=== PATIENT | male | born 1965 | race Caucasian/White ===

== ENCOUNTER 2019-03-24 17:31 | Emergency (ER) | payer BC ==
[2019-03-24 17:46] VITALS: BP 162/92
[2019-03-24] MEDS ORDERED: Rocephin 1000 MG INJ IM ONE (18:05)
[2019-03-24] MEDS ORDERED: Adacel Vial IM ONE ×2 (18:05→18:09)
[2019-03-24] MEDS ORDERED: XYLOCAINE 1% HCL 20 ML MDV IJ ONE (18:07)
[2019-03-24] MEDS ORDERED: XYLOCAINE 1% HCL 20 ML MDV ONE (18:09)
[2019-03-24] MEDS ORDERED: Rocephin 1000 MG INJ ONE (18:09)
--- NOTE | 2019-03-24 18:11 | ERPHSYRPT ---
- History of Present Illness Time Seen by Provider: 03/24/19 18:06 Source: patient Exam Limitations: no limitations Patient Subjective Stated Complaint: Pt states "I was walking down the road and the dog came out and bit me." Triage Nursing Assessment: Pt presented alert and oriented X 3, skin pwd. PT ambulates with an upright steady gait, able to speak in clear fulls sentences pt in no apparent respiratory distress. Pt has 2 puncture wounds to the back of left leg on calf, bleeding noted. Physician History: Pt states "I was walking down the road and the dog came out and bit me." pt in no apparent respiratory distress. Pt has 2 puncture wounds to the back of left leg on calf, bleeding noted. Timing/Duration: today Severity: mild Associated Symptoms: denies symptoms Allergies/Adverse Reactions: No Known Drug Allergies Allergy (Verified 03/24/19 17:46) Home Medications: Benazepril HCl 10 mg [Lotensin 10 MG] 10 mg PO DAILY 03/24/19 [History] Rosuvastatin Calcium [Crestor] 10 mg PO DAILY 03/24/19 [History] Hx Tetanus, Diphtheria Vaccination/Date Given: No Hx Influenza Vaccination/Date Given: Yes Hx Pneumococcal Vaccination/Date Given: No Immunizations Up to Date: Yes - Review of Systems Constitutional: No Symptoms Eyes: No Symptoms Ears, Nose, & Throat: No Symptoms Respiratory: No Symptoms Cardiac: No Symptoms Abdominal/Gastrointestinal: No Symptoms Genitourinary Symptoms: No Symptoms Musculoskeletal: No Symptoms Skin: Other (dog bite laceration on left leg) Neurological: No Symptoms - Past Medical History Pertinent Past Medical History: Yes Neurological History: No Pertinent History ENT History: No Pertinent History Cardiac History: High Cholesterol, Hypertension Endocrine Medical History: No Pertinent History Musculoskeletal History: No Pertinent History GI Medical History: No Pertinent History History: No Pertinent History Psycho-Social History: No Pertinent History Male Reproductive Disorders: No Pertinent History - Past Surgical History Past Surgical History: Yes Gastrointestinal: Hernia Repair Musculoskeletal: Orthopedic Surgery Other Surgical History: carpal tunnes - Social History Smoking Status: Former smoker Exposure to second hand smoke: No Drug Use: none Patient Lives Alone: No - Nursing Vital Signs Nursing Vital Signs: Initial Vital Signs Temperature 97.8 F 03/24/19 17:39 Pulse Rate 86 03/24/19 17:39 Respiratory Rate 18 03/24/19 17:39 Blood Pressure 162/92 03/24/19 17:39 O2 Sat by Pulse Oximetry 97 03/24/19 17:39 Pain Scale Pain Intensity 3 - Physical Exam General Appearance: no apparent distress Eye Exam: PERRL/EOMI Ears, Nose, Throat Exam: normal ENT inspection Neck Exam: normal inspection Respiratory Exam: normal breath sounds Cardiovascular Exam: regular rate/rhythm Gastrointestinal/Abdomen Exam: soft Back Exam: normal inspection Extremity Exam: normal inspection, other (2 cms laceration on left leg) Neurologic Exam: alert, oriented x 3 SpO2: 97 Procedures - Laceration/Wound Repair Left Calf Wound Location: Left, lower leg Wound Length (cm): 2 Wound's Depth, Shape: superficial, contused tissue, into subcut Wound Explored: clean Irrigated: Yes Hibiclens Prep: Yes Anesthesia: local, 1% Lidocaine Volume Anesthetic (ccs): 3 Wound Debrided: moderate Wound Repaired With: Arielle (Five arielle applied) Layer Closure?: No - Course Nursing assessment & vital signs reviewed: Yes Ordered Tests: Active Orders 24 hr Category Date Time Status Wound Care STAT Care 03/24/19 18:03 Active Medication Summary Discontinued Medications Generic Name Dose Route Start Last Admin Trade Name Freq PRN Reason Stop Dose Admin Ceftriaxone Sodium 1,000 mg 03/24/19 18:05 03/24/19 18:13 Rocephin 1000 Mg Inj IM 03/24/19 18:06 1,000 mg STAT ONE Administration Ceftriaxone Sodium Confirm 03/24/19 18:09 Rocephin 1000 Mg Inj Administered 03/24/19 18:10 Dose 1,000 mg .ROUTE .STK-MED ONE Diphtheria/Tetanus/Acell Pertussis 0.5 ml 03/24/19 18:05 03/24/19 18:13 Adacel Vial IM 03/24/19 18:06 0.5 ml .ONCE ONE Administration Diphtheria/Tetanus/Acell Pertussis Confirm 03/24/19 18:09 Adacel Vial Administered 03/24/19 18:10 Dose 0.5 ml IM .STK-MED ONE Lidocaine HCl 5 ml 03/24/19 18:07 03/24/19 18:12 Xylocaine 1% Hcl 20 Ml Mdv IJ 03/24/19 18:08 5 ml STAT ONE Administration Lidocaine HCl Confirm 03/24/19 18:09 Xylocaine 1% Hcl 20 Ml Mdv Administered 03/24/19 18:10 Dose 3 ml .ROUTE .STK-MED ONE - Progress Progress: improved Counseled pt/family regarding: diagnosis, need for follow-up (wound check in 3 days, arielle removal in 7 days) - Departure Departure Disposition: Home Clinical Impression: Dog bite of calf Qualifiers: Encounter type: initial encounter Laterality: left Qualified Code(s): S81.852A - Open bite, left lower leg, initial encounter Condition: Stable Critical Care Time: No Referrals: KIMMIE LORENZO MD [Primary Care Provider] - Instructions: Animal Bites (DC), Laceration Repair With Arielle (DC), Staple Removal Additional Instructions: Discharge/Care Plan LIZZIE KEN was seen on 03/24/19 in the Emergency Room. The patient was counseled regarding Diagnosis,Lab results, Imaging studies, need for follow up and when to return to the Emergency Room. Prescriptions given: Discharge Note I have spoken with the patient and/or caregivers. I have explained the patient' s condition, diagnosis and treatment plan based on the information available to me at this time. I have answered the patient's and/or caregiver's questions and addressed any concerns. The patient and/or caregivers have as good understanding of the patient's diagnosis, condition and treatment plan as can be expected at this point. The vital signs have been stable. The patient's condition is stable and appropriate for discharge from the emergency department. The patient will pursue further outpatient evaluation with the primary care physician or other designated or consulting physician as outlined in the discharge instructions. The patient and/or caregivers are agreeable to this plan of care and follow-up instructions have been explained in detail. The patient and/or caregivers have received these instruction. The patient/and or caregivers are aware that any significant change in condition or worsening of symptoms should prompt an immediate return to this or the closest emergency department or call 911. LIZZIE KEN was seen on 03/24/19 n the Emergency Room. At that time you were treated for an emergent condition, during your visit Laboratory, Radiology and/or other procedures may have been ordered. It is very important that you follow-up with your Primary Care Physician KIMMIE LORENZO within the next 24-48 hours to review your Emergency Room visit and the final results of testing that was ordered. Some test results such as Urine Cultures, Blood Cultures, and other cultures if ordered will not be finalized for 24-48 hours. If you do not have a Primary Care Provider please call the medical records department at [phone] ext [phone] to obtain a copy of your results or you may sign into our patient portal to obtain these results by visiting us @ [email or web address] and completing the following steps: 1. Click on the Patient Portal link 2. Click the Patient Self Enrollment Link to complete the enrollment form and entering your 3. Once the enrollment form is completed you will receive an email with a temporary ID and password at the email address you provided. 4. Next choose a user name and password. Your user name must be at least 4 characters long and your password must be at least 4 characters long. 5. Choose a security question from the list and provide your answer to the question. If you already have signed into the Health Portal you may access your Health Care Information 06/09 by the following steps: 1. Login to our website @ [email or web address] 2. Enter your original user name and password. FAQS The [facility] Health Portal is an online tool that contains your Lab Results, Radiology Reports, Visit History, Discharge Instructions and Health Summary Lab and Radiology Results will not be available for 72 hours on the portal. The Portal is a secure site, passwords are encryted and URLs are re-written so they cannot be copied and pasted. You and authorized family members are the only ones who can access your Portal. Also there is a timeout feature that protects your information if you leave the Portal page open. If you have technical difficulty please use the Contact Us link on the page this will allow you to submit any questions you have regarding the Portal or you may contact the Medical Record Department at [phone]. Prescriptions: Cephalexin Mh 500 mg [Keflex 500 mg] 500 mg PO Q6H #40 capsule
[2019-03-24 18:31] VITALS: PULSE 88; O2SAT 98
== END 2019-03-24 18:39 | disposition home or self-care (01) ==
LOC: ED 17:31
DX: S81.852A Open bite, left lower leg, initial encounter (principal)
CPT/HCPCS: 12001; 90471; 90715; 96372; 99284; J0696